=== PATIENT | male | born 1980 | race Caucasian/White ===

== ENCOUNTER 2024-10-17 12:24 | Emergency (ER) | payer BC, SELFPAY ==
[2024-10-17 12:37] VITALS: BP 152/106
--- NOTE | 2024-10-17 13:18 | ED.GENMED ---
History of Present Illness
<Ana Maria Navarro PA-C - Last Filed: 10/17/24 21:06>
General
Chief Complaint: Facial Problem
Source: patient
Exam Limitations: none
Time Seen by Provider: 10/17/24 13:18
Nursing documentation reviewed up to this point in time: agreed with
History of Present Illness
History of Present Illness:
This is a 44-year-old male with past medical history of hypertension presents to the emergency department today with concerns of left facial pain and swelling for the past week. Patient states that when this first started, he was having cough and
cold-like symptoms with associated fevers and chills. He started to have swelling in his left side of the face. He also notes pain. He states that over the past few days the pain is extended into the jaw on the left ear. Patient has no chest pain
or shortness of breath. Patient has been on cefuroxime and Flagyl for 3 days and notes that his symptoms have not been getting better. His PCP is with [facility] advised him to go to emergency department for further evaluation. Patient states that
he had something similar 14 years ago. Patient denies any allergies to any penicillins. Patient states that he is up to date on his vaccines.
Review of Systems
<Ana Maria Navarro PA-C - Last Filed: 10/17/24 21:06>
Review of Systems
All Other Systems: ROS reviewed and negative except as documented in HPI and ROS
Phy Exam
<Ana Maria Navarro PA-C - Last Filed: 10/17/24 21:06>
Physical Exam
Physical Exam:
General: Patient is well appearing and in no acute distress; non-toxic
Skin: Warm and dry, no rashes or lesions
Head: Normocephalic, atraumatic. Tender mass noted to the left parotid area, TMJ joints intact bilaterally.
Eyes: Sclera non-icteric. EOMs intact.
Throat: Mild pharyngeal erythema noted, uvula midline, no intra-oral lesions
Cardiac: Regular rate and rhythm, no murmurs
Pulm: Normal respiratory effort, no wheezes, rales, or rhonchi
Neuro: CN II-XII intact, no focal neurologic deficits.
Psychiatric: Appropriate mood and affect.
Course
<Ana Maria Navarro PA-C - Last Filed: 10/17/24 21:06>
Orders/Labs/Results
Orders:
Orders
10/17/24 13:42
IV Insert/Care/Rem.- Treatment PRN
10/17/24 14:13
Dexamethasone Sod Phosphate [Decadron] 10 mg IV NOW STA
10/17/24 14:33
Complete Blood Count/With Diff Urgent
Comprehensive Metabolic Panel Urgent
10/17/24 15:36
Ampicillin/Sulbactam 3 G [Unasyn] 3 gm 0.9% Sodium Chloride 100 ml [Nss] 100 ml IV NOW
Abnormal Lab Results
10/17/24
14:33
MCH 32.1 H pg
(27.0-31.0)
Abs Immat Gran (auto) 0.1 H 10^3/uL
(0-0.05)
Absolute Monos (auto) 0.7 H 10^3/uL
(0.1-0.6)
Immature Gran % 0.7 H %
(0-0.5)
Glucose 107 H mg/dl
(70-99)
Alkaline Phosphatase 34 L U/L
(38-126)
Total Protein 8.4 H g/dl
(6.3-8.2)
Albumin 5.2 H g/dl
(3.5-5.0)
10/17/24 14:33
10/17/24 14:33
Vital Signs
Initial and Last Documented VS:
Initial Vital Signs
Temp Pulse Resp BP Pulse Ox
36.4 C 91 16 152/106 97
10/17/24 12:37 10/17/24 12:37 10/17/24 12:37 10/17/24 12:37 10/17/24 12:37
Last Documented Vital Signs
Temp Pulse Resp BP Pulse Ox
36.4 C 76 16 124/74 98
10/17/24 12:37 10/17/24 16:37 10/17/24 16:37 10/17/24 16:37 10/17/24 16:37
<Quincy Blas, DO - Last Filed: 10/18/24 09:08>
Orders/Labs/Results
Orders:
Orders
10/17/24 13:42
IV Insert/Care/Rem.- Treatment PRN
10/17/24 14:13
Dexamethasone Sod Phosphate [Decadron] 10 mg IV NOW STA
10/17/24 14:33
Complete Blood Count/With Diff Urgent
Comprehensive Metabolic Panel Urgent
10/17/24 15:36
Ampicillin/Sulbactam 3 G [Unasyn] 3 gm 0.9% Sodium Chloride 100 ml [Nss] 100 ml IV NOW
Abnormal Lab Results
10/17/24
14:33
MCH 32.1 H pg
(27.0-31.0)
Abs Immat Gran (auto) 0.1 H 10^3/uL
(0-0.05)
Absolute Monos (auto) 0.7 H 10^3/uL
(0.1-0.6)
Immature Gran % 0.7 H %
(0-0.5)
Glucose 107 H mg/dl
(70-99)
Alkaline Phosphatase 34 L U/L
(38-126)
Total Protein 8.4 H g/dl
(6.3-8.2)
Albumin 5.2 H g/dl
(3.5-5.0)
10/17/24 14:33
10/17/24 14:33
Vital Signs
Initial and Last Documented VS:
Initial Vital Signs
Temp Pulse Resp BP Pulse Ox
36.4 C 91 16 152/106 97
10/17/24 12:37 10/17/24 12:37 10/17/24 12:37 10/17/24 12:37 10/17/24 12:37
Last Documented Vital Signs
Temp Pulse Resp BP Pulse Ox
36.4 C 76 16 124/74 98
10/17/24 12:37 10/17/24 16:37 10/17/24 16:37 10/17/24 16:37 10/17/24 16:37
<Ana Maria Navarro PA-C - Last Filed: 10/17/24 21:06>
MDM/Problems Addressed
Differential Diagnosis Includes:
Bacterial parotitis, viral parotitis, lymphadenitis, tumor, sialadenitis
MDM/Problems Addressed:
44-year-old male with past medical history of hypertension presents emergency department today with concerns of left facial mass. He is associated URI symptoms. He was started on antibiotics by his PCP and he feels improved. Will obtain lab work
and will discuss with ENT.
ENT states that with the length of patient's abx, this is not long enough to be considered abx failure, and does not feel imaging is warranted at this time. Will switch to clindamycin to better tailor coverage. Dr. Jose Luis FRASER states that patient
can be arranged to be seen in the office next week. Advised patient to call the office. Patient given dose of unasyn here in the ER. Patient stable for discharge. Return precautions discussed.
Chronic conditions affecting care:
HTN
<Ana Maria Navarro PA-C - Last Filed: 10/17/24 21:06>
*Pulse Oximetry
Patient hypoxic: no
*Critical Care Note
Total Time (30-74mins, 75-104mins- exclusive of procedures): Not Applicable
Data Reviewed
Review of Other/Old Records Reveals: Records (No previous ER physician documentation to review) and Discharge Summary (no discharge summaries in [facility] to review )
Source: patient and records
Prescriptions/Medications Considered But Not Given:
n/a
<Ana Maria Navarro PA-C - Last Filed: 10/17/24 21:06>
Patient Management
Discussion with other providers: Health Teacher (ENT )
Escalation/DeEscalation of care consider admission/obs:
Case reviewed with my attending and Dr. Jose Luis FRASER.
Patient stable for discharge.
ED Attending Note
<Ana Maria Navarro PA-C - Last Filed: 10/17/24 21:06>
-
Portions of this chart may have been created with voice recognition software.� Occasional wrong word or��sound alike� substitutions may have occurred due to the inherent limitations of voice recognition software.
<Quincy Blas DO - Last Filed: 10/18/24 09:08>
ED Attending Note
Patient seen and examined by attending physician: Yes
I performed the substantive portion of visit, reviewed & personally made and approve the management plan that is documented in note by myself or LIZ.: Yes
ED Attending Note:
I evaluated the patient at bedside. The patient has about a 4 cm area of concern which is somewhat indurated in the preauricular region concerning for either parotid or lymph node etiology. Discussed case with ENT as patient strongly opposes CT
unless absolutely necessary. Will give IV treatment as well.
Discharge Plan
Departure
Patient Disposition: Home (Routine Discharge)
Date of Disposition: 10/17/24
Time of Disposition: 15:40
Patient with high blood pressure during this ER visit?: Yes
Condition: Good
Discharge Problem:
Left facial swelling, Mass of parotid gland
Instructions: Parotitis, BLOOD PRESSURE
Prescriptions:
New
clindamycin HCl 300 mg capsule
300 mg PO TID 10 Days Qty: 30 0RF
No Action
lisinopril 10 mg Tablet
10 mg PO QPM
metronidazole [Flagyl] 500 mg Tablet
500 mg PO Q8H
cefuroxime axetil 500 mg Tablet
500 mg PO BID
tadalafil 2.5 mg Tablet
2.5 mg PO QPM
thyroid (pork) [[place] Thyroid] 30 mg Tablet
30 mg PO DAILY
Testosterone Powder 1kg
1 applic topical BID
Patient Comments:
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
acetaminophen [Tylenol 8 Hour] 650 mg Tablet Extended Release
1,300 mg PO [id number] PRN (Reason: mild pain)
methylprednisolone [Medrol (Jayce)] 4 mg Tablets,Dose Pack
0 mg PO PER PKG DIR
Referrals:
Oscar Amaya MD [Active] - Call in 1-3 days for appt
Armando Zhang MD [Family Provider] -
Activity Restrictions/Additional Instructions:
You received a dose of Unasyn through the IV here in the emergency department.
Please continue your Medrol but skip today's dose. Please stop Cefuroxine and Flagyl. Please start clindamycin 3 times daily for 10 days.
Please call the attached number to schedule an appointment with Dr. Amaya. He is aware of your case.
PLEASE RETURN EMERGENCY DEPARTMENT SHOULD YOU DEVELOP FEVERS, TROUBLE SWALLOWING, TROUBLE BREATHING, CHEST PAIN, SHORTNESS OF BREATH, SWELLING BEHIND THE EAR, ANY OTHER SIGNS OR SYMPTOMS WORRISOME
Interventions
Interventions:
*Risk Screen - Suicide Last Done: 10/17/24 12:37
*General Assessment Last Done: 10/17/24 12:37
*Neglect/Abuse Screening Last Done: 10/17/24 12:37
ED- Fall Risk Assessment Last Done: 10/17/24 15:22
*ED COVID-19 Vaccine History Last Done: 10/17/24 12:37
*Nursing Disposition Last Done: 10/17/24 16:38
ED- Neurological Assessment Last Done: 10/17/24 15:22
ED-Skin Assessment Last Done: 10/17/24 15:22
Discharge Date and Time
Discharge Date/Time: 10/17/24 16:38
Print Language: [id number]
[2024-10-17 14:46] LABS: % Basophils 0.4 % (0-2); % Eosinophils 1.2 % (0-6); % Immature Granulocytes 0.7 % (0-0.5); % Lymphocytes 24.6 % (20.5-51.1); % Monocytes 7.2 % (1.7-9.3); % Neutrophils 65.9 % (42.2-75.2); Absolute Eosinophils 0.1 10^3/uL (0-0.7); Absolute Immature Granulocytes 0.1 10^3/uL (0-0.05); Absolute Lymphocytes 2.2 10^3/uL (1.2-3.4); Absolute Monocytes 0.7 10^3/uL (0.1-0.6); Hematocrit 49.2 % (39.0-52.0); Hemoglobin 17.5 g/dL (13.0-18.0); Mean Corp Hgb Conc. 35.6 g/dL (33.0-37.0); Mean Corpuscular Hgb 32.1 pg (27.0-31.0); Mean Corpuscular Volume 90.3 fL (80.0-94.0); Mean Platelet Volume 9.2 fL (7.4-10.4); Nucleated Red Blood Cells % 0 % (-); Platelet Count 288 10^3/uL (130-400); Red Blood Cell Count 5.45 10^6/uL (4.70-6.10); Red Cell Dist. Width 11.8 % (11.5-14.5); White Blood Cell Count 9.1 10^3/uL (4.8-10.8)
[2024-10-17 15:11] LABS: ALT (SGPT) 35 U/L (0-50); AST (SGOT) 27 U/L (17-59); Albumin 5.2 g/dl (3.5-5.0); Alkaline Phosphatase 34 U/L (38-126); Blood Urea Nitrogen 17 mg/dl (9-20); Calcium 9.6 mg/dl (8.4-10.2); Carbon Dioxide 25 mmol/L (22-30); Chloride 101 mmol/L (98-107); Glucose 107 mg/dl (70-99); Potassium 4.1 mmol/L (3.5-5.1); Sodium 139 mmol/L (135-145); Total Bilirubin 0.9 mg/dl (0.2-1.3); Total Protein 8.4 g/dl (6.3-8.2); eGFR > 60.00
[2024-10-17] MEDS: UNASYN IV (15:56)
[2024-10-17] MEDS: DECADRON 10 MG IV (15:56)
[2024-10-17 16:37] VITALS: BP 124/74
== END 2024-10-17 16:38 | disposition home or self-care (01) ==
LOC: EMR 12:24
PROVIDERS: Physician Assistant; EMERGENCY PHYSICIAN Emergency Medicine; FAMILY PHYSICIAN Internal Medicine
DX: R22.0 Localized swelling, mass and lump, head (principal); I10 Essential (primary) hypertension
CPT/HCPCS: 99284; 96365; 96375 ×2; 80053; 85025

== ENCOUNTER 2025-03-31 06:22 | Day surgery (SDC) | payer BC, SELFPAY | END 2025-03-31 14:00 | disposition home or self-care (01) | LOC: GI 06:22 | PROVIDERS: ATTENDING PHYSICIAN Internal Medicine; FAMILY PHYSICIAN Internal Medicine | DX: D12.5 Benign neoplasm of sigmoid colon (principal); K57.30 Diverticulosis of large intestine without perforation or abscess without bleeding; R19.7 Diarrhea, unspecified; R10.84 Generalized abdominal pain; K62.89 Other specified diseases of anus and rectum; R10.13 Epigastric pain | CPT/HCPCS: 45385; 45380; 43239; 88305; 88342 ==